=== PATIENT | male | born 1985 | race Caucasian/White ===

== ENCOUNTER 2017-01-16 12:02 | Emergency (ER) | payer SELFPAY ==
[~2017-01-16] VITALS: Ht 177.8 cm; Wt 79.5 kg
[~2017-01-16 12:02] MED LIST: ACYC400T PO; HYDR25 PO
[2017-01-16 12:05] VITALS: BP 126/80; PULSE 89; RESP 20; TEMP 98.2; O2SAT 98
--- NOTE | 2017-01-16 12:07 | PD ---
Physical Exam Time Seen by Provider: 12:05 Narrative 31 y/o male here with the sensation of foreign body when swallowing for 2-3 months. Vital signs reviewed. Seen at triage desk. Awaiting bed placement. Data Data Last Documented VS Vital Signs Date Time Temp Pulse Resp B/P Pulse Ox O2 Delivery O2 Flow Rate FiO2 01/16/17 12:05 98.2 89 20 126/80 98 Nasal Cannula MDM Medical Record Reviewed: Yes Supervised Visit with LEYLA: Leroy Coyne Jan 16, 2017 12:07
[2017-01-16] MEDS ORDERED: OMEP40CA2 PO (13:02)
[2017-01-16] MEDS ORDERED: AMOX875T PO (13:02)
[2017-01-16] MEDS ORDERED: FLUT1SPR5 EACH NARE (13:02)
--- NOTE | 2017-01-16 13:02 | PD ---
HPI Chief Complaint: ENT Complaint Time Seen by Provider: 12:50 Travel History International Travel<30 days: No Contact w/Intl Traveler<30days: No History of Present Illness HPI 31-year-old male presents the emergency Department with 1 month of consistent throat discomfort, sinus congestion, postnasal drip, and heartburn. Patient states this been off and on for the last month without significant fever , headache, ear pain, or shortness of breath. Patient just recently by [employer] today for his heartburn. Previous to this he has not tried anything [id number]. Patient is concerned about possible throat cancer or abscess. He has no difficulty with speech. He has no nausea, vomiting, or other symptoms. No wheezing or shortness of breath. He describes the pain in his throat as a congestion and swelling. Not significant pain. He has no known drug allergies. [facility] Social History Alcohol Use: No Tobacco Use: No Substance Use: No Allergies-Medications (Allergen,Severity, Reaction): Coded Allergies: No Known Allergies (Unverified , 12/09/15) Reported Meds & Prescriptions Reported Meds & Active Scripts Active Acyclovir 400 mg (Acyclovir) 400 Mg Tab 1 Tab PO BID Atarax 25 Mg Tab (Hydroxyzine Hcl) 25 Mg Tab 25 Mg PO TID Review of Systems Except as stated in HPI: all other systems reviewed are Neg General / Constitutional: No: Fever, Chills Eyes: No: Visual changes HENT: Positive: Sore Throat, Rhinitis, Rhinorrhea, Congestion, No: Headaches, Vertigo, Nosebleed, Neck Stiffness, Neck Pain, Dental Difficulties, Ear Discharge, Earache Cardiovascular: No: Chest Pain or Discomfort Respiratory: Positive: Cough, No: Shortness of Breath, Wheezing (postnasal drip.) Gastrointestinal: Positive: Other (heartburn and reflux.), No: Nausea, Vomiting, Diarrhea, Abdominal Pain Genitourinary: No: Dysuria Musculoskeletal: No: Pain Skin: No Rash Neurologic: No: Weakness Psychiatric: No: Depression Endocrine: No: Polydipsia Hematologic/Lymphatic: No: Easy Bruising Physical Exam Narrative GENERAL: Patient appears in no acute distress. SKIN: Warm and dry. Normal color. Normal turgor. HEAD: Atraumatic. Normocephalic. No significant sinus tenderness. EYES: Pupils equal and round. No scleral icterus. No injection or drainage. ENT: No nasal bleeding or discharge. Mucous membranes pink and moist. Posterior pharynx appears somewhat irritated with mild cobblestoning, but no significant erythema or lymphadenopathy. Airway is patent. Uvula is midline. TMs are clear bilaterally. NECK: Trachea midline. Supple and nontender without significant lymphadenopathy. CARDIOVASCULAR: Regular rate and rhythm. RESPIRATORY: No accessory muscle use. Clear to auscultation. Breath sounds equal bilaterally. MUSCULOSKELETAL: Extremities without clubbing, cyanosis, or edema. No obvious deformities. NEUROLOGICAL: Awake and alert. No obvious cranial nerve deficits. Motor grossly within normal limits. Five out of 5 muscle strength in the arms and legs. Normal speech. PSYCHIATRIC: Appropriate mood and affect; insight and judgment normal. Data Data Last Documented VS Vital Signs Date Time Temp Pulse Resp B/P Pulse Ox O2 Delivery O2 Flow Rate FiO2 01/16/17 12:05 98.2 89 20 126/80 98 Nasal Cannula MDM Medical Decision Making Medical Screen Exam Complete: Yes Emergency Medical Condition: Yes Differential Diagnosis GERD. Pharyngitis. Sinusitis. Postnasal drip. Narrative Course Patient is medically stable at time of exam. Patient symptoms are felt to be mainly due to his reflux which he just started to treat. Patient also given amoxicillin 875 twice a day for 10 days. Patient is also given Flonase nasal spray 2 sprays each nostril daily. Patient take [id number] Zantac or Tums as well as needed. Patient follow up if symptoms do not improve or worsen as discussed. Diagnosis Primary Impression: GERD (gastroesophageal reflux disease) Qualified Code: K21.9 - Gastroesophageal reflux disease without esophagitis Additional Impression: Sinusitis Qualified Code: J32.4 - Pansinusitis, unspecified chronicity Patient Instructions: Gastroesophageal Reflux Disease (ED), General Instructions, Sinusitis (ED) Additional Instructions: Patient symptoms are felt to be mainly due to his reflux which he just started to treat. Patient also given amoxicillin 875 twice a day for 10 days. Patient is also given Flonase nasal spray 2 sprays each nostril daily. Patient take [id number] Zantac or Tums as well as needed. Patient follow up if symptoms do not improve or worsen as discussed. Disposition: 01 DISCHARGE HOME Condition: Stable Peter Valdez Jan 16, 2017 13:01
== END 2017-01-16 13:18 | disposition home or self-care (01) ==
LOC: NEPK 12:02
DX: K21.9 Gastro-esophageal reflux disease without esophagitis (principal); J32.4 Chronic pansinusitis
CPT/HCPCS: 99284